=== PATIENT | male | born 1985 | race Caucasian/White ===

== ENCOUNTER → 2020-04-02 | Outpatient (CLI) | payer OTHER | END | disposition home or self-care (01) | LOC: STAR 11:39 | PROVIDERS: ATTEND Anesthesiology | DX: Z01.812 Encounter for preprocedural laboratory examination (principal); Z20.828 Contact with and (suspected) exposure to other viral communicable diseases | CPT/HCPCS: 36415; 87635 ==

== ENCOUNTER 2020-04-07 14:21 | Day surgery (SDC) | payer OTHER ==
[~2020-04-07] VITALS: Ht 190.5 cm; Wt 89.0 kg
[2020-04-07 15:13] VITALS: BP 109/57
[2020-04-07] MEDS ORDERED: PLEASE ENTER HEIGHT AND WEIGHT MC SCH (15:30)
[2020-04-07] MEDS ORDERED: LACTATED RINGERS 1,000 ML IV SCH (15:30)
[2020-04-07] MEDS ORDERED: CHLORHEXIDINE 15 ML UDC MM ONE (15:30)
[2020-04-07] MEDS ORDERED: HYDR-3241 PO (15:43)
[2020-04-07] MEDS ORDERED: CLIN600P11 PO (15:43)
[2020-04-07] MEDS ORDERED: BUPIVACAINE/PF 0.5% ONE (17:47)
[2020-04-07] MEDS ORDERED: EPINEPHRINE 1 MG/ML, 1ML ONE (17:47)
[2020-04-07] MEDS ORDERED: CLINDAMYCIN 150 MG/ML, 6ML ONE (17:52)
[2020-04-07] MEDS ORDERED: MIDAZOLAM 1 MG/ML, 2ML ONE (17:53)
[2020-04-07] MEDS ORDERED: FENTANYL PF 250 MCG/5ML ONE (17:53)
[2020-04-07] MEDS ORDERED: DEXAMETHASONE 4 MG/ML, 1ML ONE (18:23)
[2020-04-07] MEDS ORDERED: KETOROLAC 30 MG/1 ML ONE (18:27)
[2020-04-07] MEDS ORDERED: ONDANSETRON 2MG/ML, 2ML IVPush PRN (18:30)
[2020-04-07] MEDS ORDERED: ACETAMINOPHEN 325 MG TABLET PO PRN (18:30)
[2020-04-07] MEDS ORDERED: PROMETHAZINE 25 MG/ML, 1ML IVPush PRN (18:30)
[2020-04-07] MEDS ORDERED: LABETALOL 5MG/ML, 20ML IV PRN (18:30)
[2020-04-07] MEDS ORDERED: OXYcodone 5 MG/5 ML ORAL.SOL UDC PO PRN (18:30)
[2020-04-07] MEDS ORDERED: MEPERIDINE/PF 25MG/0.5ML IVPush PRN (18:30)
[2020-04-07] MEDS ORDERED: hydrALAzine 20 MG/ML, 1ML IV PRN (18:30)
[2020-04-07] MEDS ORDERED: PROPOFOL 10 MG/ML, 20ML ONE ×2 (18:37)
[2020-04-07] MEDS ORDERED: ONDANSETRON 2MG/ML, 2ML ONE (18:37)
[2020-04-07] MEDS ORDERED: MEPERIDINE/PF 25MG/ML,1ML ONE (18:53)
[2020-04-07] MEDS ORDERED: FENTANYL PF 100 MCG/2ML ONE (18:53)
[2020-04-07] MEDS ORDERED: HYDROmorphone 1 MG/ML, 1ML INJ ONE (19:16)
[2020-04-07] MEDS ORDERED: OXYcodone 5 MG/5 ML ORAL.SOL UDC ONE (19:16)
[2020-04-07] MEDS: FENTANYL PF 100 MCG/2ML IV PRN ×2 (19:17→19:22)
[2020-04-07] MEDS: HYDROmorphone 1 MG/ML, 1ML INJ IVPush PRN ×2 (19:40→19:45)
[2020-04-07] MEDS ORDERED: OXYC5TAB3 PO (20:34)
[2020-04-07] MEDS ORDERED: OXYcodone/APAP 5/325MG TABLET PO PRN (21:30)
[2020-04-07] MEDS ORDERED: HYDROmorphone 1 MG/ML, 1ML INJ IM PRN (21:30)
[2020-04-07] MEDS ORDERED: ONDANSETRON 2MG/ML, 2ML IV PRN (21:30)
== END 2020-04-07 22:03 | disposition home or self-care (01) ==
LOC: OUT 14:21 → 4NE 20:21 → OUT 22:03
PROVIDERS: ATTEND Orthopaedic Surgery
DX: S61.021A Laceration with foreign body of right thumb without damage to nail, initial encounter (principal); S61.210A Laceration without foreign body of right index finger without damage to nail, initial encounter; S61.212A Laceration without foreign body of right middle finger without damage to nail, initial encounter; J45.909 Unspecified asthma, uncomplicated; F17.210 Nicotine dependence, cigarettes, uncomplicated; Z88.0 Allergy status to penicillin; X58.XXXA Exposure to other specified factors, initial encounter; Y93.89 Activity, other specified; Y92.89 Other specified places as the place of occurrence of the external cause; Y99.8 Other external cause status; Z79.2 Long term (current) use of antibiotics; Z79.899 Other long term (current) drug therapy; Z72.89 Other problems related to lifestyle
CPT/HCPCS: 10120; 20103; 26418; J0171; J1100; J1170; J1885; J2175; J2250; J2405; J2704; J3010; J7120; G0378